=== PATIENT | male | born 1950 | race Caucasian/White ===

== ENCOUNTER → 2017-02-12 09:41 | Outpatient (CLI) | payer MEDICARE, OTHER ==
[2013-12-23 06:58] VITALS: BMI 37.7
[~2017-02-12 09:41] MED LIST: CELEBREX200 MG PO; CIALIS5 MG PO; HYDROCODONE-APA1 TAB PO; MIRAPEX0.5 MG PO; ZESTORETIC 20-1 EACH PO
== END | disposition home or self-care (01) ==
LOC: D.MRI 09:41
DX: M75.122 Complete rotator cuff tear or rupture of left shoulder, not specified as traumatic (principal)

== ENCOUNTER → 2017-02-20 14:43 | Outpatient (CLI) | payer MEDICARE, OTHER ==
[2013-12-23 06:58] VITALS: BMI 37.7
== END | disposition home or self-care (01) ==
LOC: D.US 14:43
DX: M79.605 Pain in left leg (principal); R60.0 Localized edema

== ENCOUNTER 2017-04-05 05:28 | Day surgery (SDC) | payer MEDICARE, OTHER ==
[2017-04-02 13:46] LABS: HEMATOCRIT 44.7 % (42.0-54.0); HEMOGLOBIN 15.2 g/dL (13.5-17.5); MCH 32.5 pg (26.0-34.0); MCV 95.7 fL (80.0-100.0); MEAN PLATELET VOLUME 9.8 fL (7.4-10.4); RBC 4.67 10x6/uL (4.20-6.10); RDW 12.6 % (11.5-14.5); WBC 4.8 10x3/uL (4.8-10.8)
[2017-04-02 14:14] LABS: CALC OSMOLALITY 277 mosm/kg (275-300); CALCIUM 8.5 mg/dL (8.5-10.1); CARBON DIOXIDE 31.5 mmol/L (21.0-32.0); CHLORIDE - SERUM 96 mmol/L (98-107); POTASSIUM - SERUM 4.6 mmol/L (3.5-5.1); SODIUM 134 mmol/L (136-145); UREA NITROGEN 12 mg/dL (7-18); eGFR NON AFRICAN AMERICAN 79 mL/min (90-120)
[2017-04-02 14:16] LABS: GLUCOSE 284 mg/dL (74-106)
[~2017-04-05] VITALS: Ht 175.3 cm; Wt 106.1 kg
[~2017-04-05 05:28] MED LIST changes: +CELEXA20 MG PO; +GLUCOPHAGE500 MG PO; +ULTRAM50 MG PO; +XARELTO20 MG PO
[2017-04-05 12:54] VITALS: Ht 175.3 cm; Wt 106.1 kg
[2017-04-05] MEDS ORDERED: PERCOCET 10/3251 TA1 PO (16:30)
--- NOTE | 2017-04-05 16:59 | NUR ---
TAKE OVER PT FROM [facility] AT THIS TIME. PT IS a&oX4 IN STABLE CONDITION. AND VOICES"IT ALREADY FEELS BETTER".
--- NOTE | 2017-04-05 18:07 | NUR ---
IV DC WITH CATHER TIP INTACT
--- NOTE | 2017-04-06 09:25 | OP ---
PATIENT NAME: ZACH MOURA MEDICAL RECORD: [id number] :50 LOCATION:[facility] ADMISSION DATE: SURGEON: JASMYNE NEWMAN MD DATE OF OPERATION: 04/05/2017 PREOPERATIVE DIAGNOSES: Rotator cuff tear of the left shoulder, impingement syndrome of the left shoulder, acromioclavicular arthritis of the left shoulder. POSTOPERATIVE DIAGNOSES: Rotator cuff tear of the left shoulder, impingement syndrome of the left shoulder, acromioclavicular arthritis of the left shoulder, biceps tendinitis. PROCEDURES: 1. Arthroscopic rotator cuff repair. 2. Biceps tenotomy. 3. Subacromial decompression, acromioplasty and bursectomy. 4. Distal clavicle excision-1 cm. SURGEON: Jasmyne Newman MD ANESTHESIA: General. INTRAOPERATIVE COMPLICATIONS: None. SUMMARY OF PATHOLOGIC FINDINGS: The patient had severe impingement with the attritional rotator cuff tear. Excoriation of the coracoacromial ligament was seen in the distal clavicle, had inferior osteophytes as well as grade IV chondromalacia. The biceps tendon was completely torn with the exception of few small fibers. At the time of arthroscopy, the tear was actually complete and the tendon retracted. OPERATIVE SUMMARY IN DETAIL: After obtaining the preoperative orthopedic surgery consent as well as anesthetic consultation, evaluation and clearance operating room and placed on the table in supine position. After general laryngeal mask was administered, the patient was placed in a right lateral decubitus position. All pressure points were well padded to include down leg peroneal pad as well as axillary roll. The patient was on table using the vacuum pack suction system. Left upper extremity and shoulder were prepped and draped in routine sterile fashion. The arm was held in the Arthrex traction boom at 30 degrees of forward flexion, 30 degrees of abduction, 10 pounds of traction laterally. Arthroscopy was established in the glenohumeral joint from a posterior portal. Anterior portal was established in the anterior safe interval. Accessory tertiary portal was created through the rotator cuff tear. Gentle debridement was done on the labrum. This was followed by taking down of the attenuated fibers of the rotator cuff from the articular side. The decortication was carried out on the articular aspect of the supraspinatus tendinous footprint. Attention then turned to the subacromial space. While in the subacromial space, the undersurface of the acromion was denuded of all soft tissue elements using the polytetrafluoroethylene system. A 5-0 barrel bur was then used to perform acromioplasty at the level of acromioclavicular joint through a separate arthroscopic portal under direct arthroscopic visualization. Distal clavicle was excised for 1 cm. The biceps was completely released at this point as is only a few fibers of the severely tendonotic tendon was left. At this point, a SpeedBridge was put into place with Arthrex proximal row, was followed by passing of the sutures then anchored using the lateral row. Having OPERATIVE REPORT [id number] ZACH MOURA completed this, arthroscopic portals were closed in routine interrupted fashion using 4-0 Prolene. Sterile dressings were applied. The patient was awakened, taken to recovery in stable condition. All final needle and sponge counts were correct. TRANSINT:[id number] Voice Confirmation ID: [id number] DOCUMENT ID: [id number] PATY BROWN, JASMYNE VEGA at 0925 CC: [id number] DICTATION DATE: 04/05/172031 DIESEL LOCOMOTIVE ENGINEER: 04/06/17 0058 [facility] 04/05/17 [facility] [address] [place] [address]
== END 2017-04-05 18:15 | disposition home or self-care (01) ==
LOC: D.OPS 05:28 → D.PAN 13:00 → D.OPS 13:00 → D.PAN 13:05 → D.OPS 13:45
PROVIDERS: Anesthesiology
DX: M75.122 Complete rotator cuff tear or rupture of left shoulder, not specified as traumatic (principal); M75.42 Impingement syndrome of left shoulder; G47.30 Sleep apnea, unspecified; I10 Essential (primary) hypertension; E11.9 Type 2 diabetes mellitus without complications; K21.9 Gastro-esophageal reflux disease without esophagitis; Z01.812 Encounter for preprocedural laboratory examination; I82.409 Acute embolism and thrombosis of unspecified deep veins of unspecified lower extremity

== ENCOUNTER 2018-06-10 15:43 | Inpatient (IN) | payer MEDICARE, OTHER ==
[~2018-06-10] VITALS: Ht 175.3 cm; Wt 103.4 kg
--- NOTE | ~2018-06-10 | MORECARE ---
CASE MANAGEMENT DISCHARGE SUMMARY PATIENT: ZACH MOURA UNIT: [id number] ADM DATE: 06/10/18 AGE: 67 : 50 SEX: M ROOM/BED: D.2774 AUTHOR: DAYANARA MERCER PHYSICIAN: REFERRING PHYSICIAN: CARLOS ALEXIS MD DATE OF SERVICE: 06/11/18 Discharge Plan Patient Name: ZACH MOURA Facility: [facility]:[place] : 1950 Planned Disposition: Home Anticipated Discharge Date: 06/12/18 Discharge Date: Expected LOS: 2 Initial Reviewer: [email or web address] Initial Review Date: 06/11/2018 Generated: 06/11/18 1:13 pm DCP- Discharge Planning Updated by [email or web address]: Navneet Torres on 06/11/18 11:[address] Patient Name: ZACH MOURA Admission Status: Elective Accout number: [id number] Admission Date: 06-10-2018 : 1950 Admission Diagnosis: Attending: CARLOS ALEXIS Current LOS: 1 Anticipated DC Date: 06-12-2018 Planned Disposition: Home Primary Insurance: MEDICARE A & B Discharge Planning Comments: CM MET WITH PT IN ROOM TO DISCUSS DISCHARGE PLANNING AND NEEDS. 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 PT HAS CPAP THAT HE USES WITH NO MEDICAL EQUIPMENT PROVIDER PREFERENCE. PT ALSO HAS ADILIA LIFT, CRUTCHES, WALKER, ROLLIGN WALKER, AND WHEELCHAIR THAT HE USES FOR THE CARE OF HIS SPOUSE. PT HAS NO OUTSIDE SERVICES ASSISTING IN THE HOME. CM DISCUSSED AVAILABILITY OF HOME HEALTH, REHAB SERVICES AND MEDICAL EQUIPMENT. PT HAS PERSONAL CARE AGENCY INFORMATION PROVIDED BY HIS 'S [place] MACHINE OPERATOR PT'S IS ALSO IN OBSERVATION AT [place]; PT IS IN PROCESS OF DEVELOPING A PLAN FOR HIS WIFES CARE IF PT EVER NEEDS HELP WITH HIS AT HOME. PT DENIES DISCHARGE NEEDS, REPORTS A FRIEND WILL PICK HIM UP FOR DISCHARGE HOME. IMPORTANT MESSAGE FROM MEDICARE PROVIDED AND EXPLAINED. PT PLANS TO DISCHARGE HOME WHERE HE IS CAREGIVER FOR HIS SPOUSE. FRIEND TO TRANSPORT AT DISCHARGE. PT HAS NO ANTICIPATED DISCHARGE NEEDS AT THIS TIME. CM TO FOLLOW AND ASSIST IF NEEDED. Faculty Instructor: Navneet Torres DCPIA - Discharge Planning Initial Assessment Updated by [id number]: Navneet Torres on 06/11/18 12:02 pm * Is the patient Alert and Oriented? Yes * How many steps to enter\exit or inside your home? 13 W/RAMP * PCP DR. ALEXIS * Pharmacy [facility] [address] * Preadmission Environment Home with Family * ADLs Independent * Equipment CPAP Crutch Adilia Lift Rolling Walker Walker Wheelchair * Other Equipment PT USES CPAP AT HOME ONLY, OTHER MEDICAL EQUIPMENT FOR PT'S SPOUSE. NO MEDICAL EQUIPMENT PROVIDER PREFERENCE * List name and contact numbers for known caregivers / representatives who currently or will assist patient after discharge: LANA CAMARENA, FRIEND, LIT BEATTY, SPOUSE, * Verbal permission to speak to the caregivers and representatives has been obtained from the patient. Yes * Community resources currently utilized None * Please name any agencies selected above. NONE * Additional services required to return to the preadmission environment? No * Can the patient safely return to the preadmission environment? Yes * Has this patient been hospitalized within the prior 30 days at any hospital? No Coverage Notice Reviewer: [id number] - Navneet Torres Notice Issued Date-Time: 06/11/2018 11:30 Notice Type: IM Discharge Notice Notice Delivered To: Patient Relationship to Patient: House Admin Name: Delivery Method: HAND - Hand Delivered Betty Days: Prior Verbal Notification: Recipient Understood Notice: Yes Recipient Signature: Yes Med Rec Note Co-signed by Attending: Coverage Notice Comment: Last DP export: 06/11/18 11:05 Patient Name: ZACH MOURA Page [id number] at 1213 All edits/amendments must be made on the electronic document DICTATION DATE: 06/11/18 1213 GEAR CODING MACHINE OPERATOR: JEANINE 06/11/18 1213 RPT#: [id number] DC DATE: STATUS: ADM IN [facility] [address] [place] [address] END OF REPORT
--- NOTE | ~2018-06-10 | MORECARE ---
CASE MANAGEMENT DISCHARGE SUMMARY PATIENT: ZACH MOURA UNIT: [id number] ADM DATE: 06/10/18 AGE: 67 : 50 SEX: M ROOM/BED: D.2134 AUTHOR: DAYAANRA MERCER PHYSICIAN: REFERRING PHYSICIAN: CARLOS ALEXIS MD DATE OF SERVICE: 06/11/18 Discharge Plan Patient Name: ZACH MOURA Facility: [facility]:[place] : 1950 Planned Disposition: Home Anticipated Discharge Date: 06/12/18 Discharge Date: Expected LOS: 2 Initial Reviewer: [id number] Initial Review Date: 06/11/2018 Generated: 06/11/18 12:58 pm Patient Name: ZACH MOURA Page [phone] at 1158 All edits/amendments must be made on the electronic document DICTATION DATE: 06/11/18 1158 SLOPE TENDER: JEANINE 06/11/18 1158 RPT#: [id number] DC DATE: STATUS: ADM IN [facility] [address] [place] [address] END OF REPORT
--- NOTE | ~2018-06-10 | MORECARE ---
CASE MANAGEMENT DISCHARGE SUMMARY PATIENT: ZACH MOURA UNIT: [id number] ADM DATE: 06/10/18 AGE: 67 : 50 SEX: M ROOM/BED: D.9434 AUTHOR: DAYANARA MECRER PHYSICIAN: REFERRING PHYSICIAN: CARLOS ALEXIS MD DATE OF SERVICE: 06/14/18 Discharge Plan Patient Name: ZACH MOURA Facility: [facility]:[place] : 1950 Planned Disposition: Home Anticipated Discharge Date: 06/13/18 Discharge Date: 06/13/2018 Expected LOS: 3 Initial Reviewer: [email or web address] Initial Review Date: 06/11/2018 Generated: 06/14/18 10:13 am DCP- Discharge Planning Updated by [email or web address]: Navneet Torres on 06/11/18 11:[address] Patient Name: ZACH MOURA Admission Status: Elective Accout number: [id number] Admission Date: 06-10-2018 : 1950 Admission Diagnosis: Attending: CARLOS ALEXIS Current LOS: 1 Anticipated DC Date: 06-12-2018 Planned Disposition: Home Primary Insurance: MEDICARE A & B Discharge Planning Comments: CM MET WITH PT IN ROOM TO DISCUSS DISCHARGE PLANNING AND NEEDS. 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 PT HAS CPAP THAT HE USES WITH NO MEDICAL EQUIPMENT PROVIDER PREFERENCE. PT ALSO HAS ADILIA LIFT, CRUTCHES, WALKER, ROLLIGN WALKER, AND WHEELCHAIR THAT HE USES FOR THE CARE OF HIS SPOUSE. PT HAS NO OUTSIDE SERVICES ASSISTING IN THE HOME. CM DISCUSSED AVAILABILITY OF HOME HEALTH, REHAB SERVICES AND MEDICAL EQUIPMENT. PT HAS PERSONAL CARE AGENCY INFORMATION PROVIDED BY HIS 'S MARZIPAN MOLDER PT'S IS ALSO IN OBSERVATION AT [place]; PT IS IN PROCESS OF DEVELOPING A PLAN FOR HIS WIFES CARE IF PT EVER NEEDS HELP WITH HIS AT HOME. PT DENIES DISCHARGE NEEDS, REPORTS A FRIEND WILL PICK HIM UP FOR DISCHARGE HOME. IMPORTANT MESSAGE FROM MEDICARE PROVIDED AND EXPLAINED. PT PLANS TO DISCHARGE HOME WHERE HE IS CAREGIVER FOR HIS SPOUSE. FRIEND TO TRANSPORT AT DISCHARGE. PT HAS NO ANTICIPATED DISCHARGE NEEDS AT THIS TIME. CM TO FOLLOW AND ASSIST IF NEEDED. Mri Manager: Navneet Torres DCPIA - Discharge Planning Initial Assessment Updated by [id number]: Navneet Torres on 06/11/18 12:02 pm * Is the patient Alert and Oriented? Yes * How many steps to enter\exit or inside your home? 13 W/RAMP * PCP DR. ALEXIS * Pharmacy [facility] [address] * Preadmission Environment Home with Family * ADLs Independent * Equipment CPAP Crutch Adilia Lift Rolling Walker Walker Wheelchair * Other Equipment PT USES CPAP AT HOME ONLY, OTHER MEDICAL EQUIPMENT FOR PT'S SPOUSE. NO MEDICAL EQUIPMENT PROVIDER PREFERENCE * List name and contact numbers for known caregivers / representatives who currently or will assist patient after discharge: LANA CAMARENA, FRIEND, LIT BEATTY, SPOUSE, * Verbal permission to speak to the caregivers and representatives has been obtained from the patient. Yes * Community resources currently utilized None * Please name any agencies selected above. NONE * Additional services required to return to the preadmission environment? No * Can the patient safely return to the preadmission environment? Yes * Has this patient been hospitalized within the prior 30 days at any hospital? No Coverage Notice Reviewer: [id number] - Navneet Torres Notice Issued Date-Time: 06/11/2018 11:30 Notice Type: IM Discharge Notice Notice Delivered To: Patient Relationship to Patient: Roll Handler Name: Delivery Method: HAND - Hand Delivered Betty Days: Prior Verbal Notification: Recipient Understood Notice: Yes Recipient Signature: Yes Med Rec Note Co-signed by Attending: Coverage Notice Comment: Last DP export: 06/11/18 11:13 Patient Name: ZACH MOURA Page [id number] at 0913 All edits/amendments must be made on the electronic document DICTATION DATE: 06/14/18912 FINANCIAL SOLUTIONS ADVISOR: JEANINE 06/14/18912 RPT#: [id number] DC DATE:06/13/18 STATUS: DIS IN [facility] [address] [place] [address] END OF REPORT
--- NOTE | ~2018-06-10 | MORECARE ---
CASE MANAGEMENT DISCHARGE SUMMARY PATIENT: ZACH MOURA UNIT: [id number] ADM DATE: 06/10/18 AGE: 67 : 50 SEX: M ROOM/BED: D.2134 AUTHOR: SYLVIE,DOC PHYSICIAN: REFERRING PHYSICIAN: CARLOS ALEXIS MD DATE OF SERVICE: 06/11/18 Discharge Plan Patient Name: ZACH MOURA Facility: [facility]:[place] : 1950 Planned Disposition: Home Anticipated Discharge Date: 06/12/18 Discharge Date: Expected LOS: 2 Initial Reviewer: [email or web address] Initial Review Date: 06/11/2018 Generated: 06/11/18 1:05 pm DCPIA - Discharge Planning Initial Assessment Updated by SUZY: Navneet Torres on 06/11/18 12:02 pm * Is the patient Alert and Oriented? Yes * How many steps to enter\exit or inside your home? 13 W/RAMP * PCP DR. ALEXIS * Pharmacy [facility] [address] * Preadmission Environment Home with Family * ADLs Independent * Equipment CPAP Crutch Adilia Lift Rolling Walker Walker Wheelchair * Other Equipment PT USES CPAP AT HOME ONLY, OTHER MEDICAL EQUIPMENT FOR PT'S SPOUSE. NO MEDICAL EQUIPMENT PROVIDER PREFERENCE * List name and contact numbers for known caregivers / representatives who currently or will assist patient after discharge: LANA CAMARENA, FRIEND, LIT BEATTY, SPOUSE, * Verbal permission to speak to the caregivers and representatives has been obtained from the patient. Yes * Community resources currently utilized None * Please name any agencies selected above. NONE * Additional services required to return to the preadmission environment? No * Can the patient safely return to the preadmission environment? Yes * Has this patient been hospitalized within the prior 30 days at any hospital? No Coverage Notice Reviewer: [email or web address] - Navneet Torres Notice Issued Date-Time: 06/11/2018 11:30 Notice Type: IM Discharge Notice Notice Delivered To: Patient Relationship to Patient: Fraud Prevention Analyst Name: Delivery Method: HAND - Hand Delivered Betty Days: Prior Verbal Notification: Recipient Understood Notice: Yes Recipient Signature: Yes Med Rec Note Co-signed by Attending: Coverage Notice Comment: Last DP export: 06/11/18 10:58 Patient Name: ZACH MOURA Page [phone] at 1205 All edits/amendments must be made on the electronic document DICTATION DATE: 06/11/18 1205 SVP IN[employer]OVATION PARTNERSHIPS: JEANINE 06/11/18 1205 RPT#: [id number] DC DATE: STATUS: ADM IN [facility] [address] [place] [address] END OF REPORT
[~2018-06-10 15:43] MED LIST changes: +PERCOCET 10/3251 TA1 PO
[2018-06-10 18:13] LABS: HEMATOCRIT 36.8 % (42.0-54.0); HEMOGLOBIN 12.7 g/dL (13.5-17.5)
[2018-06-10 18:15] LABS: BASOPHILS 0.6 % (0-2); EOSINOPHILS 2.8 % (0-7); IMMATURE GRANULOCYTES 0.4 % (0-5); LYMPHOCYTES 33.1 % (15-50); MCH 33.8 pg (26.0-34.0); MCHC 34.5 g/dL (31.0-37.0); MCV 97.9 fL (80.0-100.0); MONOCYTES 8.9 % (2-11); NEUTROPHILS 54.2 % (40-80); RBC 3.76 10x6/uL (4.20-6.10); WBC 5.3 10x3/uL (4.8-10.8)
[2018-06-10 18:24] LABS: ALBUMIN 3.5 g/dL (3.4-5.0); ANION GAP 15.7 mmol/L (8-16); BILIRUBIN - TOTAL 0.73 mg/dL (0.2-1.3); CALCIUM 8.6 mg/dL (8.5-10.1); CARBON DIOXIDE 25.1 mmol/L (21.0-32.0); CREATININE - SERUM 1.2 mg/dL (0.6-1.3); POTASSIUM - SERUM 3.8 mmol/L (3.5-5.1); PROTEIN - SERUM 7.2 g/dL (6.4-8.2)
[2018-06-10 18:30] LABS: PLATELET COUNT 192 10x3/uL (130-400)
[2018-06-10 19:56] VITALS: BP 114/61
[2018-06-11 00:57] VITALS: BP 116/71
[2018-06-11 05:24] LABS: BASOPHILS 0.4 % (0-2); EOSINOPHILS 5.1 % (0-7); HEMATOCRIT 32.4 % (42.0-54.0); IMMATURE GRANULOCYTES 0.4 % (0-5); LYMPHOCYTES 40.4 % (15-50); MCH 33.2 pg (26.0-34.0); MCV 97.9 fL (80.0-100.0); MEAN PLATELET VOLUME 9.8 fL (7.4-10.4); MONOCYTES 9.6 % (2-11); NEUTROPHILS 44.1 % (40-80); PLATELET COUNT 161 10x3/uL (130-400); RBC 3.31 10x6/uL (4.20-6.10); RDW 13.2 % (11.5-14.5); WBC 4.9 10x3/uL (4.8-10.8)
[2018-06-11 05:49] LABS: ALBUMIN 2.8 g/dL (3.4-5.0); ALKALINE PHOSPHATASE 54 U/L (46-116); ALT (SGPT) 78 U/L (10-68); BILIRUBIN - TOTAL 0.75 mg/dL (0.2-1.3); CALC OSMOLALITY 278 mosm/kg (275-300); CALCIUM 8.1 mg/dL (8.5-10.1); CARBON DIOXIDE 28.1 mmol/L (21.0-32.0); CHLORIDE - SERUM 103 mmol/L (98-107); GLUCOSE 137 mg/dL (74-106); POTASSIUM - SERUM 3.6 mmol/L (3.5-5.1); PROTEIN - SERUM 6.1 g/dL (6.4-8.2); SODIUM 138 mmol/L (136-145); UREA NITROGEN 16 mg/dL (7-18); eGFR NON AFRICAN AMERICAN 79 mL/min (90-120)
[2018-06-11 05:58] VITALS: BP 128/64
[2018-06-11 08:33] VITALS: BP 118/71
[2018-06-11 10:15] LABS: HEMATOCRIT 32.7 % (42.0-54.0); HEMOGLOBIN 11.1 g/dL (13.5-17.5)
[2018-06-11 11:12] VITALS: BP 111/69
[2018-06-11 13:57] VITALS: Ht 175.3 cm; Wt 103.4 kg
[2018-06-11 15:48] VITALS: BP 130/80
[2018-06-11 17:08] LABS: HEMATOCRIT 33.9 % (42.0-54.0); HEMOGLOBIN 11.7 g/dL (13.5-17.5)
[2018-06-11 20:00] VITALS: BP 140/69
[2018-06-12] VITALS: BP 131/70
[2018-06-12 01:16] LABS: HEMATOCRIT 32.4 % (42.0-54.0); HEMOGLOBIN 11.2 g/dL (13.5-17.5)
[2018-06-12 04:00] VITALS: BP 141/77
[2018-06-12 04:51] LABS: BASOPHILS 0.1 % (0-2); EOSINOPHILS 1.6 % (0-7); HEMATOCRIT 31.9 % (42.0-54.0); HEMOGLOBIN 9.7 g/dL (13.5-17.5); IMMATURE GRANULOCYTES 0.2 % (0-5); LYMPHOCYTES 9.1 % (15-50); MCH 27.7 pg (26.0-34.0); MCHC 30.4 g/dL (31.0-37.0); MEAN PLATELET VOLUME 11.5 fL (7.4-10.4); MONOCYTES 12.3 % (2-11); NEUTROPHILS 76.7 % (40-80); PLATELET COUNT 155 10x3/uL (130-400); RDW 16.4 % (11.5-14.5)
[2018-06-12 05:01] LABS: MCV 91.1 fL (80.0-100.0); WBC 11.5 10x3/uL (4.8-10.8)
[2018-06-12 05:27] LABS: ALBUMIN 2.3 g/dL (3.4-5.0); ANION GAP 11.5 mmol/L (8-16); BILIRUBIN - TOTAL 1.08 mg/dL (0.2-1.3); CALCIUM 7.2 mg/dL (8.5-10.1); CARBON DIOXIDE 25.1 mmol/L (21.0-32.0); CREATININE - SERUM 1.1 mg/dL (0.6-1.3); POTASSIUM - SERUM 3.6 mmol/L (3.5-5.1); PROTEIN - SERUM 5.5 g/dL (6.4-8.2)
[2018-06-12 08:30] VITALS: BP 124/73
[2018-06-12 11:28] VITALS: BP 111/71
[2018-06-12 16:48] VITALS: BP 103/59
[2018-06-12 17:29] LABS: HEMATOCRIT 34.5 % (42.0-54.0)
[2018-06-12 17:38] LABS: HEMOGLOBIN 11.8 g/dL (13.5-17.5)
[2018-06-12 20:00] VITALS: BP 117/64
[2018-06-13] VITALS: BP 107/66
[2018-06-13 04:00] VITALS: BP 115/71
[2018-06-13 06:07] LABS: BASOPHILS 0.2 % (0-2); EOSINOPHILS 3.7 % (0-7); HEMATOCRIT 33.1 % (42.0-54.0); HEMOGLOBIN 11.2 g/dL (13.5-17.5); IMMATURE GRANULOCYTES 0.4 % (0-5); MCH 33.5 pg (26.0-34.0); MCHC 33.8 g/dL (31.0-37.0); MEAN PLATELET VOLUME 9.6 fL (7.4-10.4); MONOCYTES 8.8 % (2-11); NEUTROPHILS 47.9 % (40-80); RBC 3.34 10x6/uL (4.20-6.10); RDW 13.2 % (11.5-14.5)
[2018-06-13 06:15] LABS: ALKALINE PHOSPHATASE 67 U/L (46-116); BILIRUBIN - TOTAL 0.23 mg/dL (0.2-1.3); CALCIUM 8.1 mg/dL (8.5-10.1); CARBON DIOXIDE 29.9 mmol/L (21.0-32.0); CHLORIDE - SERUM 103 mmol/L (98-107); GLUCOSE 128 mg/dL (74-106); POTASSIUM - SERUM 3.5 mmol/L (3.5-5.1); PROTEIN - SERUM 6.1 g/dL (6.4-8.2); SODIUM 140 mmol/L (136-145); eGFR NON AFRICAN AMERICAN 79 mL/min (90-120)
[2018-06-13 06:16] LABS: ALBUMIN 2.9 g/dL (3.4-5.0); ALT (SGPT) 101 U/L (10-68); CALC OSMOLALITY 279 mosm/kg (275-300); UREA NITROGEN 9 mg/dL (7-18)
[2018-06-13 06:50] LABS: MCV 99.1 fL (80.0-100.0); PLATELET COUNT 190 10x3/uL (130-400); WBC 4.6 10x3/uL (4.8-10.8)
[2018-06-13 08:10] VITALS: BP 109/76
[2018-06-13 11:19] VITALS: BP 103/58
[2018-06-13] MEDS ORDERED: XARELTO10 MG PO (12:20)
== END 2018-06-13 14:41 | disposition home or self-care (01) | DRG 378 ==
LOC: D.M2 15:43
PROVIDERS: Family Medicine; Internal Medicine Gastroenterology
PROC: 0DJD8ZZ Inspection of Lower Intestinal Tract, Via Natural or Artificial Opening Endoscopic (ICD-10-PCS; principal; 2018-06-12 07:52)
DX: K92.2 Gastrointestinal hemorrhage, unspecified (principal); F32.1 Major depressive disorder, single episode, moderate; E11.9 Type 2 diabetes mellitus without complications; K21.9 Gastro-esophageal reflux disease without esophagitis; I10 Essential (primary) hypertension; F41.9 Anxiety disorder, unspecified; Z79.01 Long term (current) use of anticoagulants; K64.8 Other hemorrhoids; K57.30 Diverticulosis of large intestine without perforation or abscess without bleeding; Z86.718 Personal history of other venous thrombosis and embolism

== ENCOUNTER 2018-07-26 18:03 | Emergency (ER) | payer MEDICARE, OTHER ==
[~2018-07-26] VITALS: Ht 175.3 cm; Wt 107.3 kg
[~2018-07-26 18:03] MED LIST changes: +XARELTO10 MG PO
[2018-07-26 18:14] VITALS: Ht 175.3 cm; Wt 107.3 kg
[2018-07-26] MEDS ORDERED: TYLENOL W/CODEI1 TAB PO (19:27)
[2018-07-26] MEDS ORDERED: NEURONTIN 300300 MG PO (19:27)
[2018-07-26] MEDS ORDERED: ATIVAN1 MG PO (19:27)
[2018-07-26 19:38] VITALS: BP 127/69
== END 2018-07-26 19:38 | disposition home or self-care (01) ==
LOC: D.ER 18:03
DX: M54.16 Radiculopathy, lumbar region (principal)

== ENCOUNTER → 2018-09-03 16:24 | Outpatient (CLI) | payer MEDICARE, OTHER ==
[2018-07-26 18:14] VITALS: BMI 34.9
[~2018-09-03 16:24] MED LIST changes: +ATIVAN1 MG PO; +NEURONTIN 300300 MG PO; +TYLENOL W/CODEI1 TAB PO
== END | disposition home or self-care (01) ==
LOC: D.US 16:24
DX: M79.605 Pain in left leg (principal)

== ENCOUNTER → 2018-11-15 14:09 | Outpatient (CLI) | payer MEDICARE, OTHER ==
[2018-07-26 18:14] VITALS: BMI 34.9
== END | disposition home or self-care (01) ==
LOC: D.MRI 14:09
PROVIDERS: ATTEND Orthopaedic Surgery
DX: S43.431A Superior glenoid labrum lesion of right shoulder, initial encounter (principal); X58.XXXA Exposure to other specified factors, initial encounter